=== PATIENT | female | born 2000 | race Caucasian/White ===

== ENCOUNTER 2024-12-14 21:04 | Emergency (ER) | payer BC, SELFPAY ==
--- NOTE | ~2024-12-14 | US_ITS ---
CLINICAL HISTORY: pain, swelling Venous duplex ultrasound right lower extremity Comparison: None provided Findings: The visualized deep veins are fully compressible with normal Doppler color flow and spectral tracings. No popliteal cyst. IMPRESSION: 1. Negative for right lower extremity deep vein thrombosis. This document has been electronically signed by: Chivo Wade MD on 12/15/2024 01:07:20
[2024-12-14 21:23] VITALS: BP 125/87; PULSE 112; RESP 20; TEMP 36.7; O2SAT 99; BMI 29.8
[2024-12-14 21:48] LABS: MANUAL DIFF FLAG NO
[2024-12-14 21:51] LABS: Hematocrit 33.2 % (37.0-47.0); Hematocrit 34.2 % (37.0-47.0); Hemoglobin 12.1 g/dl (12.0-16.0); Imm Gran Abs Auto 0.01 X10*3/uL (0.00-0.03); Imm Gran Pct Auto 0.1 % (0.0-0.4); Lymphocytes Absolute Auto 0.9 X10*3/uL (1.2-4.9); Mean Corpuscular HGB Conc 35.4 g/dl (31.0-35.0); Mean Corpuscular HGB Conc 36.4 g/dl (31.0-35.0); Mean Corpuscular Hemoglobin 31.7 pg (27.0-33.0); Mean Corpuscular Hemoglobin 32.3 pg (27.0-33.0); Mean Corpuscular Volume 88.5 fL (80.0-98.0); Mean Corpuscular Volume 89.5 fL (80.0-98.0); NRBC Abs Auto 0.000 X10*3/uL (0.0-0.012); NRBC Pct Auto 0.0 /100WBC (0.0-0.2); Platelet Count 244 X10*3/uL (160-400); Platelet Count 258 X10*3/uL (160-400); Red Blood Count 3.75 X10*6/uL (4.20-5.50); Red Blood Count 3.82 X10*6/uL (4.20-5.50); White Blood Count 6.8 X10*3/uL (4.8-10.8); White Blood Count 6.9 X10*3/uL (4.8-10.8)
[2024-12-14 22:31] VITALS: BP 114/81; PULSE 110; RESP 18; TEMP 36.9; O2SAT 99
--- NOTE | 2024-12-15 00:25 | ED_ITS ---
HPI - Skin/Abscess/Foreign Bdy General Chief complaint: Skin/Abscess/Foreign Body Stated complaint: bilat flare up/painful rt knee swollen Time Seen by Provider: 12/14/24 23:48 Source: patient Mode of arrival: ambulatory Limitations: no limitations History of Present Illness ED Provider: GAMAL ESCOBAR narrative: 24 yo female with no sig PMH not on any medications has been having red rash on both legs not itchy for the past few months - she is seeing her doctor in February but has not seen derm. She was blaming this on ETOH but this happens without it. Tonight it felt different and her R knee was painful and she felt her leg was slightly swollen. NO recent travel, procedures, no OCP use. She denies any trauma to the leg. She takes no medications. She has never been given anything for this. Onset (ago): month(s) (3) Tetanus up to date: yes Location: LLE and RLE Severity: mild Quality: dull Relieving factors: none Exacerbating factors: other Context: none Associated symptoms: arthralgias and myalgias Treatments prior to arrival: none Related Data Previous Rx's ?Medication ?Instructions ?Recorded prednisone 10 mg tablet 10 mg PO DIRECTED #41 tab s 12/15/24 Allergies Allergy/AdvReac Type Severity Reaction Status Date / Time No Known Allergies Allergy Verified 12/14/24 21:27 Review of Systems 2 Review of Systems: Constitutional : No Fever, No Chills ENT/Mouth : No sore throat, No Rhinorrhea Eyes: No Eye Pain, No Swelling, No Redness Cardiovascular : No Chest Pain, No SOB Respiratory : No Cough, No Sputum Gastrointestinal : No Nausea, No Vomiting, No Diarrhea, No abdominal Pain Genitourinary : No Dysuria, No Hematuria Musculoskeletal : pos joint pain, No Myalgias, No Joint Swelling Skin : No Skin Lesions, positive skin rash Neuro : No Weakness, No Numbness, No Headache Psych : No Anxiety, No Depression All other systems reviewed and are negative [facility] Past Medical History Attestation statement: The following information was validated with the patient. Source: old records reviewed Medical History (Updated 12/15/24 @ 00:52 by Jennifer Hall DO) No pertinent past medical history Social History Social History (Updated 12/15/24 @ 00:46 by Jennifer Hall DO) Patient Tobacco Use Status: Tobacco use Unknown Smoked in Last 30 Days: No Use of substances other than those prescribed or required for medical reasons: No Advance Directives: No Advance Directives Information Provided: No Do you have a plan to hurt others: No Plan Physical Exam 2 Vital Signs: Vital Signs: Last Vital Signs Temp 98.4 F 12/14/24 22:31 Pulse 110 H 12/14/24 22:31 Resp 18 12/14/24 22:31 BP 114/81 12/14/24 22:31 Pulse Ox 99 12/14/24 22:31 O2 Del Method Room Air 12/14/24 22:31 BMI result Body Mass Index 29.8 Appearance: Alert. Oriented X3. No acute distress. Eyes: Pupils equal, round and reactive to light. ENT: Pharynx normal. Neck: Normal inspection. Neck supple. CVS: Normal heart rate and rhythm. Pulses normal. Respiratory: No respiratory distress. Breath sounds normal. Abdomen: Soft and nontender. Skin: Skin warm and dry. Normal skin color. Normal skin turgor. Extremities: No lower extremity edema. mild R knee prepatellar swelling but no redness or warmth, she has diffuse red purple rash small patches on lower ext they do not kumar Neuro: Oriented X 3. No motor deficit. No sensory deficit. CN2-12 intact Medications Administered Discontinued Medications Generic Name Dose Route Start Last Admin Trade Name Sulaiman PRN Reason Stop Dose Admin Prednisone 40 mg 12/14/24 23:52 12/15/24 00:47 Prednisone 20 Mg Tablet PO 12/14/24 23:53 40 mg ONCE ONE Administration Medical Decision Making Medical Decision Making [facility] Narrative: 24 yo female with no sig PMH here with red rash that does not kumar she has normal pulses mild knee prepatellar swelling and c/o pain behind the knee at this time rash concerning for vasculitis I am going to obtain platelets, infl markers, tick panels, DVT study, instructed her to call dermatology and will start her on a prednisone taper Differential Diagnosis Differential Diagnoses: The differential diagnosis associated with the presentation includes vasculitis, autoimmune issue, DVT Admission/Observation Consideration of admission/observation: Escalation of care including admission/observation considered work up stable plts normal can follow up as outpatient Lab Data [facility] Lab Attestation statement: I reviewed the patient's lab results. 12/14/24 21:43 Labs: Lab Results 0712/14/24 12/14/24 Range/Units 21:43 21:43 21:43 WBC 6.8 6.9 (4.8-10.8) X10*3/uL RBC 3.82 L 3.75 L (4.20-5.50) X10*6/uL Hgb 12.1 (12.0-16.0) g/dl Hct (37.0-47.0) % MCV (80.0-98.0) fL MCH (27.0-33.0) pg MCHC (31.0-35.0) g/dl RDW (11.0-16.0) % Plt Count (160-400) X10*3/uL MPV (9.4-12.3) fL Immature Gran % (Auto) (0.0-0.4) % Neut % (Auto) (45-73) % Lymph % (Auto) (20-40) % [place] % (Auto) (2-11) % Eos % (Auto) (0-4) % Baso % (Auto) (0-2) % Lymph # (Auto) (1.2-4.9) X10*3/uL [place] # (Auto) (0.1-1.2) X10*3/uL Eos # (Auto) (0.0-0.4) X10*3/uL Baso # (Auto) (0.0-0.2) X10*3/uL Abs Immat Gran (auto) (0.00-0.03) X10*3/uL Absolute Neuts (auto) (2.0-8.3) x10*3/uL Absolute Nucleated RBC (0.0-0.012) X10*3/uL Nucleated RBC % (auto) (0.0-0.2) /100WBC Total Bilirubin (0.0-1.0) mg/dL Direct Bilirubin (0.0-0.5) mg/dL AST (5-31) U/L ALT (0-31) U/L Alkaline Phosphatase (39-117) U/L C-Reactive Protein (< or = 0.50) mg/dL Total Protein (6.5-8.0) g/dL Albumin (3.5-5.0) g/dL 12/14/24 12/14/24 12/14/24 Range/Units 21:43 21:43 21:43 WBC (4.8-10.8) X10*3/uL RBC (4.20-5.50) X10*6/uL Hgb 12.1 (12.0-16.0) g/dl Hct 34.2 L 33.2 L (37.0-47.0) % MCV 89.5 88.5 (80.0-98.0) fL MCH 31.7 (27.0-33.0) pg MCHC (31.0-35.0) g/dl RDW (11.0-16.0) % Plt Count (160-400) X10*3/uL MPV (9.4-12.3) fL Immature Gran % (Auto) (0.0-0.4) % Neut % (Auto) (45-73) % Lymph % (Auto) (20-40) % [place] % (Auto) (2-11) % Eos % (Auto) (0-4) % Baso % (Auto) (0-2) % Lymph # (Auto) (1.2-4.9) X10*3/uL [place] # (Auto) (0.1-1.2) X10*3/uL Eos # (Auto) (0.0-0.4) X10*3/uL Baso # (Auto) (0.0-0.2) X10*3/uL Abs Immat Gran (auto) (0.00-0.03) X10*3/uL Absolute Neuts (auto) (2.0-8.3) x10*3/uL Absolute Nucleated RBC (0.0-0.012) X10*3/uL Nucleated RBC % (auto) (0.0-0.2) /100WBC Total Bilirubin (0.0-1.0) mg/dL Direct Bilirubin (0.0-0.5) mg/dL AST (5-31) U/L ALT (0-31) U/L Alkaline Phosphatase (39-117) U/L C-Reactive Protein (< or = 0.50) mg/dL Total Protein (6.5-8.0) g/dL Albumin (3.5-5.0) g/dL 12/14/24 12/14/24 12/14/24 Range/Units 21:43 21:43 21:43 WBC (4.8-10.8) X10*3/uL RBC (4.20-5.50) X10*6/uL Hgb (12.0-16.0) g/dl Hct (37.0-47.0) % MCV (80.0-98.0) fL MCH 32.3 (27.0-33.0) pg MCHC 35.4 H 36.4 H (31.0-35.0) g/dl RDW 12.8 12.7 (11.0-16.0) % Plt Count 258 (160-400) X10*3/uL MPV (9.4-12.3) fL Immature Gran % (Auto) (0.0-0.4) % Neut % (Auto) (45-73) % Lymph % (Auto) (20-40) % [place] % (Auto) (2-11) % Eos % (Auto) (0-4) % Baso % (Auto) (0-2) % Lymph # (Auto) (1.2-4.9) X10*3/uL [place] # (Auto) (0.1-1.2) X10*3/uL Eos # (Auto) (0.0-0.4) X10*3/uL Baso # (Auto) (0.0-0.2) X10*3/uL Abs Immat Gran (auto) (0.00-0.03) X10*3/uL Absolute Neuts (auto) (2.0-8.3) x10*3/uL Absolute Nucleated RBC (0.0-0.012) X10*3/uL Nucleated RBC % (auto) (0.0-0.2) /100WBC Total Bilirubin (0.0-1.0) mg/dL Direct Bilirubin (0.0-0.5) mg/dL AST (5-31) U/L ALT (0-31) U/L Alkaline Phosphatase (39-117) U/L C-Reactive Protein (< or = 0.50) mg/dL Total Protein (6.5-8.0) g/dL Albumin (3.5-5.0) g/dL 12/14/24 12/14/24 12/14/24 Range/Units 21:43 21:43 21:43 WBC (4.8-10.8) X10*3/uL RBC (4.20-5.50) X10*6/uL Hgb (12.0-16.0) g/dl Hct (37.0-47.0) % MCV (80.0-98.0) fL MCH (27.0-33.0) pg MCHC (31.0-35.0) g/dl RDW (11.0-16.0) % Plt Count 244 (160-400) X10*3/uL MPV 9.0 L 8.9 L (9.4-12.3) fL Immature Gran % (Auto) 0.1 (0.0-0.4) % Neut % (Auto) 77.5 H (45-73) % Lymph % (Auto) 12.5 L (20-40) % [place] % (Auto) 8.1 (2-11) % Eos % (Auto) 1.5 (0-4) % Baso % (Auto) 0.3 (0-2) % Lymph # (Auto) 0.9 L (1.2-4.9) X10*3/uL [place] # (Auto) 0.6 (0.1-1.2) X10*3/uL Eos # (Auto) 0.1 (0.0-0.4) X10*3/uL Baso # (Auto) 0.0 (0.0-0.2) X10*3/uL Abs Immat Gran (auto) 0.01 (0.00-0.03) X10*3/uL Absolute Neuts (auto) 5.3 (2.0-8.3) x10*3/uL Absolute Nucleated RBC 0.000 0.000 (0.0-0.012) X10*3/uL Nucleated RBC % (auto) 0.0 (0.0-0.2) /100WBC Total Bilirubin (0.0-1.0) mg/dL Direct Bilirubin (0.0-0.5) mg/dL AST (5-31) U/L ALT (0-31) U/L Alkaline Phosphatase (39-117) U/L C-Reactive Protein (< or = 0.50) mg/dL Total Protein (6.5-8.0) g/dL Albumin (3.5-5.0) g/dL 12/14/24 12/15/24 Range/Units 21:43 00:40 WBC (4.8-10.8) X10*3/uL RBC (4.20-5.50) X10*6/uL Hgb (12.0-16.0) g/dl Hct (37.0-47.0) % MCV (80.0-98.0) fL MCH (27.0-33.0) pg MCHC (31.0-35.0) g/dl RDW (11.0-16.0) % Plt Count (160-400) X10*3/uL MPV (9.4-12.3) fL Immature Gran % (Auto) (0.0-0.4) % Neut % (Auto) (45-73) % Lymph % (Auto) (20-40) % [place] % (Auto) (2-11) % Eos % (Auto) (0-4) % Baso % (Auto) (0-2) % Lymph # (Auto) (1.2-4.9) X10*3/uL [place] # (Auto) (0.1-1.2) X10*3/uL Eos # (Auto) (0.0-0.4) X10*3/uL Baso # (Auto) (0.0-0.2) X10*3/uL Abs Immat Gran (auto) (0.00-0.03) X10*3/uL Absolute Neuts (auto) (2.0-8.3) x10*3/uL Absolute Nucleated RBC (0.0-0.012) X10*3/uL Nucleated RBC % (auto) 0.0 (0.0-0.2) /100WBC Total Bilirubin 0.3 (0.0-1.0) mg/dL Direct Bilirubin 0.1 (0.0-0.5) mg/dL AST 30 (5-31) U/L ALT 21 (0-31) U/L Alkaline Phosphatase 84 (39-117) U/L C-Reactive Protein 0.30 (< or = 0.50) mg/dL Total Protein 8.5 H (6.5-8.0) g/dL Albumin 4.0 (3.5-5.0) g/dL Independent Interpretation I performed an independent interpretation of an: Ultrasound (no DVT) Radiology Impression Discussion of test interpretation with radiology: I have reviewed the radiologist's reading. Independent Historian Clinical information obtained from an independent historian. History obtained from or confirmed by: Friend Prescription Management I considered prescription management with: Other Discharge Plan Discharge Clinical Impression: Rash/skin eruption Patient Disposition: Home, Self-Care Instructions: Acute Rash (ED) Additional Instructions: labs reassuring no blood clot on ultrasound tick panel will take 3 days if positive we will call you return for any worsening symptoms or concerns call dermatology for appointment - Karyn Peña take prednisone with food Prescriptions: New prednisone 10 mg tablet 10 mg PO DIRECTED Qty: 41 0RF Rx Instructions: see taper instructions 60mg on day 1-5, 40mg on day 6, 30mg on day 7, 20mg on day 8, 10mg on day 9, 5mg on day 10 Stand Alone Forms: Work/School Release Print Language: [place]
[2024-12-15 00:59] LABS: Alanine Aminotransferase 21 U/L (0-31); Albumin Level 4.0 g/dL (3.5-5.0); Alkaline Phosphatase 84 U/L (39-117); Aspartate Amino Transferase 30 U/L (5-31); Total Protein 8.5 g/dL (6.5-8.0)
[2024-12-15 01:23] VITALS: BP 107/63; PULSE 85; RESP 18; TEMP 36.8; O2SAT 99
[2024-12-15 01:28] VITALS: BP 107/63; PULSE 85; RESP 18; TEMP 36.8; O2SAT 99
[2024-12-16 22:53] LABS: A. Phagocytphilium DNA,RT-PCR NOT DETECTED (NOT DETECTED); Babesia Microti DNA, RT-PCR NOT DETECTED (NOT DETECTED); Borrelia Miyamotoi,DNA RT-PCR NOT DETECTED (NOT DETECTED); E.Chaffeensis DNA RT-PCR NOT DETECTED (NOT DETECTED); Lyme(Borrelia ssp)DNA RT-PCR NOT DETECTED (NOT DETECTED)
[2024-12-17 06:38] LABS: Lyme Blot 0.90 index
[2024-12-17 11:00] LABS: Lyme Abs Screen EQUIVOCAL
[2024-12-21 22:44] LABS: 39KD (IgG) Band NON-REACTIVE; 41KD (IgG) Band NON-REACTIVE; Lyme IgG Blot Interp NEGATIVE (NEGATIVE); Lyme IgM Blot Interp NEGATIVE (NEGATIVE)
== END 2024-12-15 01:29 | disposition home or self-care (01) ==
PROVIDERS: Emergency Provider Emergency Medicine; PCP Physician Assistant Surgical
DX: R21 Rash and other nonspecific skin eruption (principal); R60.0 Localized edema; M79.10 Myalgia, unspecified site; Z79.899 Other long term (current) drug therapy
CPT/HCPCS: 36415; 80076; 85025; 85027; 85652; 86140; 86617; 86618; 87468; 87469; 87478; 87484; 87798; 93971; 99284

== ENCOUNTER → 2024-12-15 | Outpatient (BNV) | payer BC, SELFPAY | PROVIDERS: Emergency Provider Emergency Medicine; PCP Physician Assistant Surgical; Visit Provider Radiology Diagnostic Radiology | DX: R22.41 Localized swelling, mass and lump, right lower limb (principal); M79.604 Pain in right leg | CPT/HCPCS: 93971 ==